=== PATIENT | male | born 1960 | race Caucasian/White ===

== ENCOUNTER 2017-02-20 10:49 | Inpatient (IN) | payer OTHER, MEDICARE ==
[~2017-02-20] VITALS: Ht 180.3 cm; Wt 99.8 kg
[~2017-02-20 10:49] MED LIST: BACTRIM DS TAB1 EACH PO; IBUPROFEN800 M1 PO; KEFLEX500 M1 PO; NORCO 325 MG-51 TAB PO
--- NOTE | 2017-02-20 10:55 | NUR ---
PT IN AGREEMENT TO AT LEAST A 2 HR WAIT PRIOR TO SIGNING IN
--- NOTE | 2017-02-20 11:03 | NUR ---
HERE FOR WOUND CHECK BEHIND RIGHT KNEE CAP. PT STATES HE WAS SEEN HERE TUESDAY BY SRAVANTHI LINDER. PT STATES HE HAS BEEN TAKING ANTIBIOTICS BUT HE THINKS THE WOUND IS WORSE
--- NOTE | 2017-02-20 11:35 | NUR ---
PT AMB TO ROOM 5, AWAITING EVAL.
--- NOTE | 2017-02-20 11:38 | ED SKIN/ALLERGY COMPLAINT ---
History of Present Illness General Chief Complaint: Suture Removal/Wound Recheck Stated Complaint: WOUND RECHECK Source: patient Exam Limitations: no limitations Vital Signs & Intake/Output Vital Signs & Intake/Output Vital Signs Date Time Temp Pulse Resp B/P B/P Pulse O2 O2 Flow FiO2 Mean Ox Delivery Rate 02/20 1357 99.0 68 16 107/69 98 Room Air 02/20 1311 98.5 72 18 119/72 94 Room Air 02/20 1103 97.6 84 20 107/75 95 Room Air Allergies Coded Allergies: NO KNOWN ALLERGIES (03/18/14) NKDA per [facility] antibiotic order sheet. -- Lisa 03/18/14 Reconcile Medications Cephalexin (Keflex) 500 MG CAPSULE 1 CAP PO Q6H cellulitis Gabapentin (Neurontin) 800 MG TABLET 1 TAB PO TID PAIN (Reported) Lisinopril 20 MG TABLET 1 TAB PO QPM HEART (Reported) Montelukast Sodium 10 MG TABLET 1 TAB PO QPM ALLERGIES (Reported) Sulfamethoxazole/Trimethoprim (Bactrim Ds Tablet) 800 MG-160 MG TABLET 1 TAB PO BID cellulitis Triage Note: HERE FOR WOUND CHECK BEHIND RIGHT KNEE CAP. PT STATES HE WAS SEEN HERE TUESDAY BY SRAVANTHI LINDER. PT STATES HE HAS BEEN TAKING ANTIBIOTICS BUT HE THINKS THE WOUND IS WORSE Triage Nurses Notes Reviewed? yes Onset: Abrupt Duration: week(s): (1), constant, continues in ED, getting worse Timing: single episode today Severity: mild, moderate Severity Numbers: 7 Location: extremities (LEFT LOWER) Possible Factors: insect bite (POSSIBLY) No Modifying Factors: none HPI: 56-year-old male with a past medical history of hypertension presents for follow -up after being seen with a left popliteal fossa cellulitis 2 days ago. Patient states that redness swelling and pain at the present for about a week now. He was given a dose of IV Ancef and has been taking cephalexin and Bactrim since then. Patient states that the redness swelling and pain have worsened. He has been taking his anabiotic as directed and applying warm compresses taking appropriate without any improvement. He also reports subjective signs of fever including sweats chills and body aches. His has been monitoring the wound feels that the redness is spreading. He denies any discharge, calf pain, chest pain, shortness of breath, abdominal pain, nausea, vomiting or any other associated symptoms. He's been taking ibuprofen with the pain with some improvement. He rates the pain currently as a 7 out of 10. No history of diabetes or other immunocompromiseD state. (CRYSTAL LINDER PA-C) Past History Travel History Traveled to [place] past 21 day No Medical History Any Pertinent Medical History? 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 No (CRYSTAL LINDER PA-C) Review of Systems Review of Systems Constitutional: Reports: see HPI, chills, diaphoresis. EENTM: Reports: no symptoms. Respiratory: Reports: no symptoms. Cardiovascular: Reports: no symptoms. GI: Reports: no symptoms. Genitourinary: Reports: no symptoms. Musculoskeletal: Reports: no symptoms. Skin: Reports: see HPI, erythema. Neurological/Psychological: Reports: no symptoms. Hematologic/Endocrine: Reports: no symptoms. Immunologic/Allergic: Reports: no symptoms. All Other Systems: Reviewed and Negative (CRYSTAL LINDER PA-C) Physical Exam Physical Exam General Appearance: well developed/nourished, no apparent distress, alert, awake Head: atraumatic, normal appearance Eyes: Bilateral: normal appearance, PERRL, EOMI. Ears, Nose, Throat: normal pharynx, normal ENT inspection, hearing grossly normal Neck: normal inspection, supple, full range of motion Respiratory: normal breath sounds, chest non-tender, lungs clear Cardiovascular: regular rate/rhythm, normal peripheral pulses Peripheral Pulses: 2+ dorsalis pedis (R), 2+ dorsalis pedis (L) Gastrointestinal: normal bowel sounds, soft, non-tender Back: normal inspection, normal range of motion, no vertebral tenderness Extremities: normal capillary refill, normal range of motion, no edema, rt popliteal fossa lesion is increased in size compared to previous. it measures approximatly 7cm across. there is surrounding induration and erythema. no focal fluctuant areas or discharge. lymphatic streaking seen previouly is no longer present Neurologic/Psych: no motor/sensory deficits, awake, alert, oriented x 3, normal gait, normal mood/affect Reflexes: 2+: knee (R), knee (L). Skin: intact, normal color, warm/dry Lymphatic: no anterior cervical lety (BLACK PA-C,CRYSTAL) Progress Differential Diagnosis: abscess/cellulitis, allergic reaction, anaphylaxis, contact dermatitis, lyme disease, urticaria Plan of Care: Orders Procedure Date/time Status Regular Diet 02/20 D Active Patient Data 02/20 153 Active OXYGEN SETUP (GEN) 02/20 153 Active Saline Lock 02/20 153 Active Admit to inpatient 02/20 1536 Active Vital Signs 02/20 153 Active Activity/Ambulation 02/20 153 Active Code Status 02/20 153 Active US-SUPERFICIAL IMAGING EXTREMI 02/20 1147 Active BLOOD CULTURE 02/20 1145 Active COMPREHENSIVE METABOLIC PANEL 02/20 1145 Complete CBC WITHOUT DIFFERENTIAL 02/20 114 Complete Laboratory Tests 02/20/17 1155: Anion Gap 10, Estimated GFR > 60, BUN/Creatinine Ratio 9.0, Glucose 108 H, Calcium 9.3, Total Bilirubin 1.2, AST 25, ALT 40, Alkaline Phosphatase 81, Total Protein 6.5, Albumin 4.0, Globulin 2.5, Albumin/Globulin Ratio 1.6, CBC w Diff NO MAN DIFF REQ, RBC 5.15, MCV 92.9, MCH 30.6, RDW 14.3, MPV 7.2 L, Gran % 75.6 H, Lymphocytes % 14.1 L, Monocytes % 8.9, Eosinophils % 1.1, Basophils % 0.3, Absolute Granulocytes 5.9, Absolute Lymphocytes 1.1 L, Absolute Monocytes 0.7 H, Absolute Eosinophils 0.1, Absolute Basophils 0, PUBS MCHC 33.0 Microbiology 02/20 1217 BLOOD: Blood Culture - RECD 02/20 1155 BLOOD: Blood Culture - RECD 11:45 AM: Patient seen and reevaluated. He was seen by me 2 days ago. The area of erythema appears to be enlarging. He was previously approximatLY 4 cm in diameter. Is now closer to 7-8cm in diameter. No focal fluctuant areas or discharge noted. Lymphatic streaking is no longer apparent. Patient will be given a dose of IV vancomycin and cultures obtained basic blood work obtained. he declines pain medication at this time. 3:00PM: Ultrasound of the right popliteal fossa does not show any fluid collection or abscess. Cellulitis is worsening despite maximum outpatient therapy. Patient will need to be admitted for IV antibiotics and further evaluation. Hospitalist paged. Patient given 30 mg of IV Toradol. Spoke with hospitalist. Patient will be admitted to general medicine for cellulitis failing outpatient treatment. (CRYSTAL LINDER PA-C) Departure Departure Disposition: STILL A PATIENT Condition: Stable Clinical Impression Primary Impression: Cellulitis Qualifiers: Site of cellulitis: extremity Site of cellulitis of extremity: lower extremity Laterality: right Qualified Code: L03.115 - Cellulitis of right lower limb Referrals: OSIEL NEGRON APRN (PCP/Family) Departure Forms: Customer Survey General Discharge Information Admission Note Spoke With: ANGEL RHODES M.D Documentation of Exam: Documentation of any treatments & extenuating circumstances including Concerns Regarding Discharge (functional status, medication knowledge or non-compliance, living conditions, etc.) that warrant an admission rather than observation: [ Infectious disease consult, IV antibiotics, IV pain meds, IV fluids, serial labs , monitoring of vital signs] (CRYSTAL LINDER PA-C) PA/PURE CULTURE OPERATOR Co-Sign Statement Statement: ED Attending supervision documentation- x I saw and evaluated the patient. I have also reviewed all the pertinent lab results and diagnostic results. I agree with the findings and the plan of care as documented in the PA's/PURE CULTURE OPERATOR's documentation. [] I have reviewed the ED Record and agree with the PA's/PURE CULTURE OPERATOR's documentation. [] Additions or exceptions (if any) to the PAs/PURE CULTURE OPERATOR's note and plan are summarized below: [] (AYSE GARCIA,CYDNEY)
--- NOTE | 2017-02-20 11:55 | NUR ---
1ST SET BC AND LABS SENT.
--- NOTE | 2017-02-20 12:00 | NUR ---
PHARMACY CALLED FOR IZABEL.
[2017-02-20 12:13] LABS: ABSOLUTE BASOPHIL COUNT 0 /CUMM (0.0-0.2); ABSOLUTE EOSINOPHIL COUNT 0.1 /CUMM (0.0-0.7); ABSOLUTE GRANULOCYTE CT 5.9 /CUMM (1.4-6.5); ABSOLUTE LYMPH COUNT 1.1 /CUMM (1.2-3.4); ABSOLUTE MONOCYTE COUNT 0.7 /CUMM (0.10-0.60); BASOPHIL % 0.3 % (0.0-2.0); EOSINOPHIL % 1.1 % (0-5); GRANULOCYTE % 75.6 % (42.2-75.2); HEMATOCRIT 47.8 % (42-52); MEAN CORPUSCULAR HGB 30.6 PG (27.0-31.0); MEAN CORPUSCULAR VOLUME 92.9 FL (80.0-94.0); MEAN PLATELET VOLUME 7.2 FL (7.4-10.4); PLATELET COUNT 217 /CUMM (130-400); RBC DISTRIBUTION WIDTH 14.3 % (11.5-14.5); RED BLOOD CELL CT 5.15 /CUMM (4.70-6.10); WHITE BLOOD CELL COUNT 7.8 /CUMM (4.8-10.8)
--- NOTE | 2017-02-20 12:20 | NUR ---
PT TO U/S VIA STRETCHER.
[2017-02-20] MEDS ORDERED: LISINOPRIL20 M1 PO (12:43)
[2017-02-20] MEDS ORDERED: NEURONTIN800 M2 PO (12:43)
[2017-02-20] MEDS ORDERED: MONTELUKAST SOD10 M1 PO (12:43)
--- NOTE | 2017-02-20 14:00 | NUR ---
[facility] CONTINUES TO INFUSE.
--- NOTE | 2017-02-20 14:50 | NUR ---
IZABEL COMPLETED. CONTINUES TO AWAIT U/S RESULTS. AT BEDSIDE. Informed waiting has been performed.
--- NOTE | 2017-02-20 15:00 | NUR ---
REPORT HANDED OFF TO CHELY MOYER
--- NOTE | 2017-02-20 15:38 | History & Physical ---
DWAYNE GARCIA,[facility] 02/20/17 1537: General Information and HPI History of Present Illness: Mr. Nye is a 56-year-old male with past medical history of hypertension and vertebral fractures presents with increased redness and swelling in his left popliteal fossa over the past week. He recalls a bite of some sort, either spider or tick, last Tuesday. The bite developed into increased redness and swelling prompting him to come to the ER on . He was given bactrim and keflex and told to return if the redness spread. It did, so he came in today. He endorses fevers and sweats, no chills. No CP, SOB, or abdominal complaints. Of note, he mentions drinking 6 drinks/day for pain related to his back. Allergies/Medications Allergies: Coded Allergies: NO KNOWN ALLERGIES (03/18/14) NKDA per [facility] antibiotic order sheet. -- Lisa 03/18/14 Home Med list Cephalexin (Keflex) 500 MG CAPSULE 1 CAP PO Q6H cellulitis Gabapentin (Neurontin) 800 MG TABLET 1 TAB PO TID PAIN (Reported) Lisinopril 20 MG TABLET 1 TAB PO QPM HEART (Reported) Montelukast Sodium 10 MG TABLET 1 TAB PO QPM ALLERGIES (Reported) Sulfamethoxazole/Trimethoprim (Bactrim Ds Tablet) 800 MG-160 MG TABLET 1 TAB PO BID cellulitis Past History Travel History Traveled to [place] past 21 day No Medical History EENT: NONE Cardiovascular: hypertension Respiratory: NONE Gastrointestinal: NONE Hepatic: NONE Renal: NONE Musculoskeletal: chronic back pain Psychiatric: alcohol dependence Endocrine: NONE Blood Disorders: NONE Cancer(s): NONE 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 spouse Smoking Status: Current Everyday Smoker (1 pack per day) ETOH Use: 6 drinks/day Illicit Drug Use: denies illicit drug use Employment History Employment Disability Review of Systems Review of Systems Constitutional: Reports: see HPI. EENTM: Reports: no symptoms. Cardiovascular: Reports: no symptoms. Respiratory: Reports: no symptoms. GI: Reports: no symptoms. Genitourinary: Reports: no symptoms. Musculoskeletal: Reports: see HPI. Skin: Reports: see HPI. Neurological/Psychological: Reports: no symptoms. Hematologic/Endocrine: Reports: no symptoms. Immunologic/Allergic: Reports: no symptoms. All Other Systems: Reviewed and Negative Exam & Diagnostic Data Last 24 Hrs of Vital Signs/I&O Vital Signs Date Time Temp Pulse Resp B/P B/P Pulse O2 O2 Flow FiO2 Mean Ox Delivery Rate 02/20 1357 99.0 68 16 107/69 98 Room Air 02/20 1311 98.5 72 18 119/72 94 Room Air 02/20 1103 97.6 84 20 107/75 95 Room Air Intake & Output 02/20 1600 02/20 0800 02/20 0000 Intake Total Output Total Balance Patient 215 lb Weight Weight Reported by Patient Measurement Method Physical Exam General Appearance Alert, Oriented X3, Cooperative, No Acute Distress Skin [id number] indurated wound not draining pus, warm, with srrounding area of ertheyma [id number] Cardiovascular Regular Rate, Normal S1, Normal S2, No Murmurs Lungs expiratory wheeing Abdomen Normal Bowel Sounds, Soft, No Tenderness, No Hepatospenomegaly Last 24 Hrs of Labs/Ryley: Laboratory Tests 02/20/17 1155: Anion Gap 10, Estimated GFR > 60, BUN/Creatinine Ratio 9.0, Glucose 108 H, Calcium 9.3, Total Bilirubin 1.2, AST 25, ALT 40, Alkaline Phosphatase 81, Total Protein 6.5, Albumin 4.0, Globulin 2.5, Albumin/Globulin Ratio 1.6, CBC w Diff NO MAN DIFF REQ, RBC 5.15, MCV 92.9, MCH 30.6, RDW 14.3, MPV 7.2 L, Gran % 75.6 H, Lymphocytes % 14.1 L, Monocytes % 8.9, Eosinophils % 1.1, Basophils % 0.3, Absolute Granulocytes 5.9, Absolute Lymphocytes 1.1 L, Absolute Monocytes 0.7 H, Absolute Eosinophils 0.1, Absolute Basophils 0, PUBS MCHC 33.0 Microbiology 02/20 1217 BLOOD: Blood Culture - RECD 02/20 115 BLOOD: Blood Culture - RECD Assessment/Plan Assessment: Mr. Nye is a 56-year-old male with past medical history of hypertension and vertebral fractures presents with increased redness and swelling in his left popliteal fossa over the past week. On presentation, vital signs were routine 97.6, HR 84, RR 20, BP 107/75, satting 95% on room air. Labs were notable for no leukocytosis, mild hyponatremia, glucose 108, normal LFTs. He was given ketorolac and vancomycin 1 in the ED. He will be admitted to general medicine and treated for the following problems: 1. Cellulitis 2. Alcohol dependence #Cellulitis: History suggests potential spider/tick bite precipitated this infection. There is no discharge or abscess but there is significant induration and erythema. He did not have significant amount of time on the Bactrim/Keflex, so we will keep him on Unasyn at this time. Do not have any discharge, no need for MRSA coverage. We will follow the blood cultures and monitor for signs of worsening infection area. He does not meet any SIRS criteria. -Continue Unasyn -Follow up cultures -Patient control: Morphine, ketorolac, acetaminophen as needed -Consider surgery consult if it becomes exquisitely painful or spreads rapidly for potential necrotizing fasciitis #Alcohol dependence: He self medicates by drinking about 6 drinks of alcohol per day. This is for his back pain. -CIWA protocol -Consider standing lorazepam if scores fort CIWA are high -Consider psych consult -Consider alcohol dependence counseling #Chronic medical problems: Tobacco use, hypertension, allergies, back pain -Continue home medications: Montelukast, lisinopril, gabapentin -Nicotine patch -Consider tobacco cessation counseling/pharmacology DVT prophylaxis with Lovenox DNR/DNI As Ranked By This Provider Problem List: 1. Cellulitis Qualifiers Site of cellulitis: extremity Site of cellulitis of extremity: lower extremity Laterality: right Qualified Code: L03.115 - Cellulitis of right lower limb 2. ETOH abuse 3. Tobacco abuse Core Measures/Miscellaneous Acute Coronary Syndrome ACS Diagnosis: No Cerebrovascular Accident CVA/TIA Diagnosis: No Congestive Heart Failure CHF Diagnosis: No VTE (View Protocol) VTE Risk Factors: Age > 40, Smoking [facility] prophylaxis d/t: No contraindications No VTE Pharm Prophylaxis d/t: No contraindications VTE Diagnosis: No VTE Type: NONE VTE Confirmed by (Test): NONE Sepsis (View Protocol) Severe Sepsis Present: No Septic Shock Septic Shock Present: No Miscellaneous Documentation Attending Case Discussed With: ANGEL RHODES M.D Primary Care Physician: OSIEL NEGRON APRN Patient sees these Specialists None Level of Patient Care: General Medicine ANGEL RHODES MD 02/20/17 1622: Attending MD Review Statement Attending Statement Attending MD Statement: examined this patient, discuss w/resident/PA/BANKING PARALEGAL, agreed w/resident/PA/BANKING PARALEGAL, reviewed EMR data (avail), discussed with nursing, discussed with case mgmt, amended to note Attending Assessment/Plan: Patient seen and examined. is present at the bedside. They are an extremely pleasant couple. Patient returns to the emergency room today after being started on oral antibiotic therapy for cellulitis in the right popliteal area presumed to be secondary to an extended bite. Continue course of antibiotic therapy also Tuesday at this morning and he received intravenous antibiotics in the emergency room Tuesday. Despite his regimen. Cellulitis is markedly extending. He fortunately arrives here afebrile and hemodynamically stable. He has no leukocytosis on his labs. On examination he has an angry looking erythematous rash with some skin breakdown in the right antecubital region. His swelling or tenderness however the area of erythema does extend down the canal and up the thigh. There is an area of induration extending circumferentially around the deep the erythematous area. There is no discharge. There is no fluctuant area. Apparently an ultrasound was done in the emergency room that showed no collection. Due to this worsening cellulitis despite outpatient therapy he is being admitted to the inpatient service for further management. Recommendations: -Admit him inpatient general medical service. -Patient has received a dose of vancomycin emergency room. Continue antibiotic therapy with IV Unasyn. Would recommend ID consultation in the morning for further antibiotic recommendations. -Currently there is no collection that warrants incision and drainage for now. -One care consultation. -DVT prophylaxis with subcutaneous heparin. CARLEE LUCIA 02/20/17 1731: Resident Review Statement Resident Statement: examined this patient, discussed with analysis intern, agreed with analysis intern, discussed with family, reviewed EMR data (avail), discussed with nursing , reviewed images Other Findings: Mr Nye is a 56-year-old gentleman with a PMH of hydrocele S/P hydrocelectomy, multiple polyps on colonoscopy in 2013 (hypoplastic, adenoma, pedunculated villous), daily tobacco use at one PPD (18 years) and alcohol use ( 6 drinks per day) who presents for follow-up after worsening skin infection. The patient was seen at [facility] ED last week on and diagnosed with cellulitis in the right popliteal region, sent home on Keflex and Bactrim. However,'s persistent increasing redness and pain around the site despite compliance with antibiotics. On . Skin arrival in the ED there is a 2 x 8 cm indurated erythematous region in the right popliteal crease with surrounding erythema that spreads approximately 4 x 12" around. VS on admission: BP 107/75, HR 84, RR 20, SPO2 95% on RA, T 97.6. Pertinent labs on admission: WBC 7.8, H&H 15.8/47.8, platelets 217K, sodium 135, potassium 4.7, chloride 99, bicarbonate 25, BUN/CR/1.0, glucose 108 Problem list: 1. Cellulitis of right popliteal fossa 2. I'll call dependence 3. Tobacco dependence 4. History of multiple polyps on colonoscopy in 2013 Plan: * Admit to general medicine for management of uncomplicated cellulitis. We'll start the patient on Unasyn 3 g IV Q8, follow blood cultures. If any evidence of increased limitation in range of motion, fevers, worsening pain, would be inclined to obtain imaging of the joint and consult surgery. At this time no indication for need for MRSA coverage (physical findings did not have any evidence of purulent drainage, no recent hospitalization). Plan duration therapy will be for weeks. * 18 years one PPD: Start the patient on nicotine patch 14 mg daily. Postdischarge follow-up with smoking cessation counseling with alternatives for Wellbutrin or Chantix. * Daily EtOH use with 6 drinks per day: Start the patient on CIWA protocol with Ativan PRN * DVT prophylaxis: Lovenox 40 mg subcutaneous daily * Regular diet * DNR/DNI
--- NOTE | 2017-02-20 16:21 | Admission Certification ---
Admission Certification Certification Statement - As attending physician, I certify that at the time of - admission, based on clinical presentation, severity of - symptoms, need for further diagnostic testing and - therapeutic interventions, and risk of adverse outcomes - without in-hospital treatment, in my clinical assessment, - this patient requires an acute hospital stay for a minimum - of two nights or longer. I have also considered psychsocial - factors such as support system, advanced age, financial - issues, cognitive issues, and failed out-patient treatments, - past re-admission history, safety of patient, and lack of - compliance as applicable. Specific rationale supporting this admission is: Patient requires intravenous antibiotic for management of his cellulitis.
--- NOTE | 2017-02-20 16:23 | NUR ---
PT GOING TO ROOM 220-2.
[2017-02-20 17:00] VITALS: BP 104/60
[2017-02-20 17:12] VITALS: BP 104/60
--- NOTE | 2017-02-20 17:13 | NUR ---
PT ARRIVED TO FLOOR AT 1700 VIA WHEELCHAIR FROM ER. PT A/V/OX3. IND WITH STEADY GAIT NOTED. ON RA. VITAL SIGNS STABLE. #20 TO RAC FLUSHING EASILY. PER PT, HE DRINKS 6-8 DRINKS PER DAY OF BEER OR WHISKEY, LAST DRINK WAS TWO DAYS AGO. CIWA SCORE 0. SKIN INTACT BESIDES BEHIND R KNEE CAP CELLULITIS WHICH WAS MARKED BY ED PHYSICIAN. PT C/O NO PAIN. ORDERED DINNER. OFFERS NO COMPLAINTS. ORIENTED TO ROOM, CALL KNOWLES, AND SURROUNDINGS.
[2017-02-20 22:05] VITALS: BP 122/80
[2017-02-21] VITALS (8 sets, daily range): BP systolic 110–162; BP diastolic 70–90
--- NOTE | 2017-02-21 07:37 | PN- Housestaff ---
See Addendum Subjective Follow-up For: Cellulitis Subjective: No overnight events. Slept well last night. Feels like the pain in leg is well controlled, 1-2/10. He also feels like its getting better. No other complaints. Review of Systems Constitutional: Reports: no symptoms. EENTM: Reports: no symptoms. Cardiovascular: Reports: no symptoms. Respiratory: Reports: no symptoms. Gastrointestinal: Reports: no symptoms. Genitourinary: Reports: no symptoms. Musculoskeletal: Reports: no symptoms. Skin: Reports: see HPI. Neurological/Psychological: Reports: no symptoms. Hematologic/Endocrine: Reports: no symptoms. Immunologic/Allergic: Reports: no symptoms. Objective Last 24 Hrs of Vital Signs/I&O Vital Signs Date Time Temp Pulse Resp B/P B/P Pulse O2 O2 Flow FiO2 Mean Ox Delivery Rate 02/21 0706 98.3 66 16 110/70 96 Room Air 02/21 0600 97.5 65 20 126/80 02/21 0400 97.5 65 20 126/80 02/21 0200 97.5 65 20 162/80 02/21 0018 97.5 65 20 126/80 96 Room Air 02/21 0000 98.7 70 18 122/80 02/20 2205 98.7 70 18 122/80 95 Room Air 02/20 2036 71 122/80 02/20 1712 98.6 71 18 104/60 02/20 1700 98.6 71 18 104/60 95 Room Air 02/20 1357 99.0 68 16 107/69 98 Room Air 02/20 1311 98.5 72 18 119/72 94 Room Air 02/20 1103 97.6 84 20 107/75 95 Room Air Intake & Output 02/21 0800 02/21 0000 02/20 1600 Intake Total 800 830 Output Total Balance 800 830 Intake, IV 300 130 Intake, Oral 500 700 Patient 220 lb 215 lb Weight Weight Reported by Patient Measurement Method Physical Exam General Appearance: Alert, Oriented X3, Cooperative, No Acute Distress Cardiovascular: Regular Rate, Normal S1, Normal S2 Lungs: mild expiratory wheezing bilaterally Abdomen: Normal Bowel Sounds, Soft, No Tenderness Extremities: L popliteal fossa with indurated wound, central erosion and some blood. Surrounding erythema improved from yesterday, receding from marker line Current Medications: Current Medications Sig/Linda Start time Last Medication Dose Route Stop Time Status Admin Acetaminophen 650 MG Q6P PRN 02/20 1615 AC PO Ampicillin Sodium/ 3,000 MG Q6 02/20 1800 AC 02/21 Sulbactam Sodium IV 05 Sodium Chloride 100 ML Enoxaparin Sodium 40 MG DAILY 02/20 1614 AC 02/20 SC 1852 Gabapentin 800 MG Q8 02/20 2200 AC 02/21 PO 0519 Ketorolac 15 MG Q6P PRN 02/20 161 AC Tromethamine IV Ketorolac 0 .STK-MED ONE 02/20 1515 IN Tromethamine .ROUTE Ketorolac 30 MG ONCE ONE 02/20 1500 DC 02/20 Tromethamine IV 02/20 1501 1512 Lisinopril 20 MG QPM 02/20 2200 AC 02/20 PO 203 Lorazepam 0 Q1P PRN 02/20 161 AC IV Montelukast Sodium 10 MG QPM 02/20 2200 AC 02/20 PO 2037 Morphine Sulfate 2 MG Q4P PRN 02/20 161 AC IV Nicotine 14 MG DAILY 02/21 1000 AC TOP Vancomycin HCl 1,500 MG ONCE ONE 02/20 1145 DC 02/20 Sodium Chloride 500 ML IV 02/20 1344 1300 Last 24 Hrs of Lab/Ryley Results Last 24 Hrs of Labs/Mics: Laboratory Tests 02/20/17 1155: Anion Gap 10, Estimated GFR > 60, BUN/Creatinine Ratio 9.0, Glucose 108 H, Calcium 9.3, Total Bilirubin 1.2, AST 25, ALT 40, Alkaline Phosphatase 81, Total Protein 6.5, Albumin 4.0, Globulin 2.5, Albumin/Globulin Ratio 1.6, CBC w Diff NO MAN DIFF REQ, RBC 5.15, MCV 92.9, MCH 30.6, RDW 14.3, MPV 7.2 L, Gran % 75.6 H, Lymphocytes % 14.1 L, Monocytes % 8.9, Eosinophils % 1.1, Basophils % 0.3, Absolute Granulocytes 5.9, Absolute Lymphocytes 1.1 L, Absolute Monocytes 0.7 H, Absolute Eosinophils 0.1, Absolute Basophils 0, PUBS MCHC 33.0 Microbiology 02/20 1217 BLOOD: Blood Culture - RECD 02/20 115 BLOOD: Blood Culture - RECD Assessment/Plan Assessment: Mr. Nye is a 56-year-old male with past medical history of hypertension and vertebral fractures presents with increased redness and swelling in his left popliteal fossa over the past week. #Cellulitis: History suggests potential spider/tick bite precipitated this infection. There is no discharge or abscess but there is significant induration and erythema. He did not have significant amount of time on the Bactrim/Keflex, so we will keep him on Unasyn at this time. Do not have any discharge, no need for MRSA coverage. Blood cultures negative so far. He continues to be afebrile and the erythema is improving. -Continue Unasyn -Follow up cultures -Patient control: Morphine, ketorolac, acetaminophen as needed -Consider surgery consult if it becomes exquisitely painful or spreads rapidly for potential necrotizing fasciitis #Alcohol dependence: He self medicates by drinking about 6 drinks of alcohol per day. This is for his back pain. HisCIWA has been scoring 0. -CIWA protocol, consider discontinuing in setting of 0 scores. -Consider psych consult -Consider alcohol dependence counseling #Chronic medical problems: Tobacco use, hypertension, allergies, back pain -Continue home medications: Montelukast, lisinopril, gabapentin -Nicotine patch -Consider tobacco cessation counseling/pharmacology DVT prophylaxis with Lovenox DNR/DNI Problem List: 1. Cellulitis 2. Tobacco abuse 3. EtOH dependence Pain Ratin Pain Location: left popliteal fossa Pain Goal: Remain pain free Pain Plan: see a/p Tomorrow's Labs & Rationales: cbc
--- NOTE | 2017-02-21 08:51 | NUR ---
PATIENT HAS CELLULITIS TO POSTERIOR RIGHT KNEE, AREA RED, SCABBED, PURPLE, NO DRAINAGE, LEG MARKED FOR RED AREA, REDDNESS RECEEDING FROM LINE AT THIS TIME, NO PAIN NOTED AT THIS TIME.
--- NOTE | 2017-02-21 09:11 | ULTRASOUND REPORT ---
EXAMINATION: US SUPERFICIAL IMAGING, EXTREMITY CLINICAL INFORMATION: 56-year-old male with right (originally requested as the left which was a mistake) popliteal fossa edema, swelling and angulation. Suspected abscess formation. COMPARISON: None TECHNIQUE: Targeted ultrasound of the right popliteal fossa was performed. FINDINGS: There is soft tissue edema identified corresponding to the point of redness and swelling. There is no sonographic detectable discrete focal collection or abscess identified. IMPRESSION: Nonspecific soft tissue edema is noted corresponding to the site of right popliteal fossa redness, swelling without any sonographic detectable underlying fluid collection and/or abscess formation.
[2017-02-21 10:59] LABS: ABSOLUTE BASOPHIL COUNT 0 /CUMM (0.0-0.2); ABSOLUTE EOSINOPHIL COUNT 0.2 /CUMM (0.0-0.7); ABSOLUTE GRANULOCYTE CT 4.8 /CUMM (1.4-6.5); ABSOLUTE LYMPH COUNT 1.3 /CUMM (1.2-3.4); ABSOLUTE MONOCYTE COUNT 0.9 /CUMM (0.10-0.60); BASOPHIL % 0.5 % (0.0-2.0); EOSINOPHIL % 2.7 % (0-5); GRANULOCYTE % 66.8 % (42.2-75.2); MEAN CORPUSCULAR HGB 30.8 PG (27.0-31.0); MEAN CORPUSCULAR HGB CONC 33.2 G/DL (33.0-37.0); MEAN CORPUSCULAR VOLUME 92.8 FL (80.0-94.0); MEAN PLATELET VOLUME 7.7 FL (7.4-10.4); PLATELET COUNT 198 /CUMM (130-400); RBC DISTRIBUTION WIDTH 14.6 % (11.5-14.5); RED BLOOD CELL CT 4.74 /CUMM (4.70-6.10); WHITE BLOOD CELL COUNT 7.2 /CUMM (4.8-10.8)
[2017-02-21] MEDS ORDERED: AUGMENTIN 875-1 EACH PO (14:05)
[2017-02-22] VITALS: BP 140/90
[2017-02-22 02:00] VITALS: BP 140/90
[2017-02-22 02:03] VITALS: BP 148/80
[2017-02-22 04:00] VITALS: BP 148/80
[2017-02-22 06:00] VITALS: BP 118/60
--- NOTE | 2017-02-22 06:53 | Patient Discharge Instructions ---
Discharge Instructions General Discharge Information You were seen/treated for: Skin infection (cellulitis) Watch for these problems: Fevers, chills Nausea, vomiting, abdominal pain, diarrhea Worsening redness of the skin. Decreased ability to bend the knee Special Instructions: Please take all medications as directed. Please follow-up with your PCP within one week after discharge. Diet Continue normal diet: Yes Activity Full Activity/No Limits: Yes Acute Coronary Syndrome Inclusion Criteria At DC or during hospital stay patient has or had the following: ACS DIAGNOSIS No Discharge Core Measures Meds if any: Prescribed or Continued at Discharge Meds if any: NOT Prescribed or Continued at Discharge Congestive Heart Failure Inclusion Criteria At DC or during hospital stay patient has or had the following: CHF DIAGNOSIS No Discharge Core Measures Meds if any: Prescribed or Continued at Discharge Meds if any: NOT Prescribed or Continued at Discharge Cerebrovascular accident Inclusion Criteria At DC or during hospital stay patient has or had the following: CVA/TIA Diagnosis No Discharge Core Measures Meds if any: Prescribed or Continued at Discharge Meds if any: NOT Prescribed or Continued at Discharge Venous thromboembolism Inclusion Criteria VTE Diagnosis No VTE Type NONE VTE Confirmed by (Test) NONE Discharge Core Measures - Per Current guidelines, there needs to be overlap - treatment for the first 5 days of Warfarin therapy. - If discharged on Warfarin prior to 5 days of - overlap therapy, the patient will need to be - assessed for post discharge needs including - *Post discharge parental anticoagulation - *Warfarin and/or parental anticoagulation education - *Follow up date to check INR post discharge At least 5 days overlap therapy as Inpatient No Meds if any: Prescribed or Continued at Discharge Note: Overlap Therapy is Warfarin and Anticoagulant Meds if any: NOT Prescribed or Continued at Discharge
[2017-02-22] MEDS ORDERED: AUGMENTIN 875-1 EACH PO ×2 (07:10→07:14)
--- NOTE | 2017-02-22 07:54 | PN- Housestaff ---
See Addendum Subjective Follow-up For: cellulitis Subjective: No overnight events. Feels great this morning, ready to go home. Last BM this morning. Pain in leg minimal, no other complaints. Review of Systems Constitutional: Reports: no symptoms. EENTM: Reports: no symptoms. Cardiovascular: Reports: no symptoms. Respiratory: Reports: no symptoms. Gastrointestinal: Reports: no symptoms. Genitourinary: Reports: no symptoms. Musculoskeletal: Reports: see HPI. Skin: Reports: no symptoms. Neurological/Psychological: Reports: no symptoms. Hematologic/Endocrine: Reports: no symptoms. Immunologic/Allergic: Reports: no symptoms. Objective Last 24 Hrs of Vital Signs/I&O Vital Signs Date Time Temp Pulse Resp B/P B/P Pulse O2 O2 Flow FiO2 Mean Ox Delivery Rate 02/22 0600 98.2 69 18 118/60 96 Room Air 02/22 0400 98.3 83 20 148/80 02/22 0203 98.3 83 20 148/80 96 Room Air 02/22 0200 98.7 68 20 140/90 02/22 0000 98.7 68 20 140/90 02/21 2149 987.7 68 18 140/90 95 02/21 2122 98.6 60 18 118/76 02/21 1412 98.3 57 20 150/70 97 Room Air Intake & Output 02/22 0800 02/22 0000 02/21 1600 Intake Total 600 580 580 Output Total Balance 600 580 580 Intake, IV 300 100 100 Intake, Oral 300 480 480 Physical Exam General Appearance: Alert, Oriented X3, Cooperative, No Acute Distress Cardiovascular: Regular Rate, Normal S1, Normal S2 Lungs: mild wheezing bilaterally Abdomen: Normal Bowel Sounds, Soft, No Tenderness Extremities: No Edema, Right popliteal fossa with indurated would and eroded center, improved from yesterdya Current Medications: Current Medications Sig/Linda Start time Last Medication Dose Route Stop Time Status Admin Acetaminophen 650 MG Q6P PRN 02/20 1615 AC PO Ampicillin Sodium/ 3,000 MG Q6 02/20 1800 AC 02/22 Sulbactam Sodium IV 0530 Sodium Chloride 100 ML Enoxaparin Sodium 40 MG DAILY 02/20 1614 AC 02/21 SC 0959 Gabapentin 800 MG Q8 02/20 2200 AC 02/22 PO 0530 Ketorolac 15 MG Q6P PRN 02/20 1615 DC Tromethamine IV Lisinopril 20 MG QPM 02/20 2200 AC 02/21 PO 2122 Lorazepam 0 Q1P PRN 02/20 1615 AC IV Montelukast Sodium 10 MG QPM 02/20 2200 AC 02/21 PO 2121 Morphine Sulfate 2 MG Q4P PRN 02/20 1615 AC IV Nicotine 14 MG DAILY 02/21 1000 AC 02/21 TOP 0959 Patient Medication 1 ED .STK-MED ONE 02/21 1410 TX Teaching ED 02/21 1411 Assessment/Plan Assessment: Mr. Nye is a 56-year-old male with past medical history of hypertension and vertebral fractures presents with increased redness and swelling in his left popliteal fossa over the past week. #Cellulitis: History suggests potential spider/tick bite precipitated this infection. There is no discharge or abscess but there is significant induration and erythema. He is remained afebrile, no leukocytosis, and his wound is improving. Cultures have not grown. He can likely go home today on Augmentin -Continue Unasyn -Follow up cultures -Patient control: Morphine, ketorolac, acetaminophen as needed #Alcohol dependence: He self medicates by drinking about 6 drinks of alcohol per day. This is for his back pain. His CIWA has been scoring 0. -CIWA protocol, consider discontinuing in setting of 0 scores. -Consider alcohol dependence counseling #Chronic medical problems: Tobacco use, hypertension, allergies, back pain -Continue home medications: Montelukast, lisinopril, gabapentin -Nicotine patch -Consider tobacco cessation counseling/pharmacology DVT prophylaxis with Lovenox DNR/DNI Problem List: 1. Cellulitis 2. Tobacco abuse 3. EtOH dependence Pain Ratin Pain Location: no pain Pain Goal: Remain pain free Pain Plan: see a/p Tomorrow's Labs & Rationales: discharge Discharge Plan Anticipated Discharge (Day): today
[2017-02-22 09:09] LABS: ABSOLUTE BASOPHIL COUNT 0 /CUMM (0.0-0.2); ABSOLUTE EOSINOPHIL COUNT 0.2 /CUMM (0.0-0.7); ABSOLUTE LYMPH COUNT 1.8 /CUMM (1.2-3.4); ABSOLUTE MONOCYTE COUNT 0.8 /CUMM (0.10-0.60); BASOPHIL % 0.5 % (0.0-2.0); GRANULOCYTE % 63.6 % (42.2-75.2); HEMATOCRIT 45.5 % (42-52); MEAN CORPUSCULAR HGB 30.9 PG (27.0-31.0); MEAN CORPUSCULAR HGB CONC 33.8 G/DL (33.0-37.0); MEAN CORPUSCULAR VOLUME 91.7 FL (80.0-94.0); MEAN PLATELET VOLUME 7.5 FL (7.4-10.4); PLATELET COUNT 235 /CUMM (130-400); RBC DISTRIBUTION WIDTH 14.6 % (11.5-14.5); RED BLOOD CELL CT 4.96 /CUMM (4.70-6.10); WHITE BLOOD CELL COUNT 7.9 /CUMM (4.8-10.8)
[2017-02-22] MEDS ORDERED: KEFLEX500 M1 PO (10:47)
[2017-02-22] MEDS ORDERED: BACTRIM DS TAB1 EACH PO (10:47)
--- NOTE | 2017-02-22 11:34 | Discharge Summary ---
Visit Information Visit Dates Admission Date: 02/20/17 Discharge Date: 02/22/17 Hospital Course Course Attending Physician: MILES VERDE MD Primary Care Physician: OSIEL NEGRON APRN [facility] Course: Mr. Nye is a 56-year-old male with past medical history of hypertension and vertebral fractures who presented with increased redness and swelling in his left popliteal fossa over the past week. On presentation, vital signs were routine 97.6, HR 84, RR 20, BP 107/75, satting 95% on room air. Labs were notable for no leukocytosis, mild hyponatremia, glucose 108, normal LFTs. He was given ketorolac and vancomycin 1 in the ED. He wwas be admitted to general medicine and treated for the following problems: 1. Cellulitis 2. Alcohol dependence #Cellulitis: On presentation, he was afebrile with no leukocytosis. He never met SIRS criteria. History suggested potential spider/tick bite precipitated this infection. There was no discharge or abscess but there was significant induration and erythema at presentation. He was given 1 dose of vancomycin and then started on Unasyn. He remained afebrile, with no leukocytosis, and his wound improved on unasyn. Cultures did not grow. He should continue his previously prescribed Keflex and Bactrim for 7 more days as directed. #Alcohol dependence: He reported self medicating by drinking about 6 drinks of alcohol per day. This was for his back pain. He was placed on CIWA protocol but did not score above 0 throughout his stay. He should consider abstaining from or reducing alcohol consumption. #Chronic medical problems: Tobacco use, hypertension, allergies, back pain: The following medications were held or continued as below -Continue home medications: Montelukast, lisinopril, gabapentin -Nicotine patch was given. He should quit smoking. Allergies: Coded Allergies: NO KNOWN ALLERGIES (03/18/14) NKDA per [facility] antibiotic order sheet. -- Lisa 03/18/14 Disposition Summary Disposition Principal Diagnosis: Cellulitis Additional Diagnosis: Alcohol abuse Discharge Disposition: home or self care Discharge Instructions General Discharge Information Code Status: Do Not Resucitate/Intubat Patient's Diet: Regular diet Patient's Activity: As tolerated Follow-Up Instructions/Appts: Please follow-up with your PCP in 1 week. Please take all medications as directed. Medications at Discharge Discharge Medications: Continue taking these medications: Gabapentin (Neurontin) 800 MG TABLET 1 Tablet ORAL THREE TIMES DAILY Qty = 90 Comments: Last Taken:02/22/17 Time:0600 Lisinopril (Lisinopril) 20 MG TABLET 1 Tablet ORAL Every night Qty = 90 Comments: Last Taken:02/21/17 Time:10 pm Montelukast Sodium (Montelukast Sodium) 10 MG TABLET 1 Tablet ORAL Every night Qty = 90 Comments: Last Taken:02/21/17 Time:10 pm Cephalexin (Keflex) 500 MG CAPSULE 1 Capsule ORAL Q6H Qty = 40 Instructions: Please continue for 7 more days (stop on 03/01/17) Comments: did not receive in hospital This prescription has been renewed Sulfamethoxazole/Trimethoprim (Bactrim Ds Tablet) 800 MG-160 MG TABLET 1 Tablet ORAL TWICE DAILY Qty = 20 Instructions: Please take for 7 more days (stop on 03/01) Comments: did not receive in hospital This prescription has been renewed Copies To: OSIEL NEGRON APRN Attending Review Statement Documenting Attending: AMMON GARCIA,MILES Guerin Other Findings: please see my separate attending note for more details.
== END 2017-02-22 11:15 | DRG 603 ==
LOC: ERH 10:49 → ERHI 15:36 → 2NA 15:36 → ENRESERV 16:21 → ENTRNSPT 16:42 → 2NA 16:55 → CMPTRNSPT 17:00 → 2NA 02-21 08:51 → ENPENDDIS 02-22 10:50 → 2NA 02-22 11:15
PROVIDERS: Internal Medicine; Physician Assistant Medical; ADMIT Internal Medicine
DX: L03.115 Cellulitis of right lower limb (principal); F10.20 Alcohol dependence, uncomplicated; F17.200 Nicotine dependence, unspecified, uncomplicated; M54.9 Dorsalgia, unspecified
CPT/HCPCS: 2NASP; 36415; 76881; 87040; 96365; 96366; 96375; J1650; J1885; J3370; J7040